=== PATIENT | female | born 1970 | race Two or more races ===

== ENCOUNTER 2019-09-30 18:24 | Emergency (ER) | payer OTHER ==
[~2019-09-30] VITALS: Ht 157.5 cm; Wt 115.7 kg
--- NOTE | 2019-09-30 18:35 | NUR ---
[id number] C/O COUGH AND CONGESTION, SOB X YESTERDAY. ALBUTEROL GIVEN BREAKFAST COOK. PT ALSO C/O URGENCY TO URINATE. PATIENT A/OX4, BREATHING EVEN AND UNLABORED, NO SOB NOTED, KEPT COMFORTABLE.
[2019-09-30] MEDS ORDERED: IV NS 0.9% 500 ML BAG IV ONE (19:00)
[2019-09-30] MEDS ORDERED: LORAZEPAM INJ 2 MG/ML VIAL ONE (19:08)
[2019-09-30 19:15] LABS: BASOPHILS # (AUTO) 0.1 /CMM (0.0-0.2); BASOPHILS % (AUTO) 0.5 % (0.0-2.0); EOSINOPHILS % (AUTO) 1.3 % (0.0-6.0); HEMATOCRIT 41 % (33-45); HEMOGLOBIN 13.1 g/dL (11.5-14.8); LYMPHOCYTES # (AUTO) 0.7 /CMM (0.8-4.8); LYMPHOCYTES % (AUTO) 5.5 % (20.0-44.0); MEAN CORPUSCULAR HGB CONC 32 g/dl (31.0-36.0); MEAN CORPUSCULAR VOLUME 78 fL (82-100); MONOCYTES # (AUTO) 0.6 /CMM (0.1-1.30); MONOCYTES % (AUTO) 4.6 % (2.0-12.0); NEUTROPHILS # (AUTO) 11.7 /CMM (1.8-8.9); NEUTROPHILS % (AUTO) 88.1 % (43.0-81.0); PLATELET COUNT (AUTO) 241 /CMM (150-450); RED BLOOD CELL COUNT(AUTO) 5.24 MIL/uL (4.0-5.2); WHITE BLOOD COUNT (AUTO) 13.3 K/uL (4.3-11.0)
[2019-09-30 19:23] LABS: APPEARANCE,URINE Clear (CLEAR); BILIRUBIN,URINE Negative (NEGATIVE); BLOOD, URINE Small Ery/uL (NEGATIVE); COLOR,URINE Yellow (YELLOW); KETONES,URINE Negative (NEGATIVE); LEUKOCYTE ESTERASE ,URINE Negative (NEGATIVE); NITRITE, URINE Negative (NEGATIVE); PROTEIN,URINE Negative (NEGATIVE); UGLUCOSE Negative (NEGATIVE); UROBILINOGEN,URINE 0.2 EU/dL (0.2)
[2019-09-30 19:30] LABS: CALCIUM, SERUM 9.6 mg/dL (8.5-10.1); CARBON DIOXIDE 29 mmol/L (21-32); CHLORIDE 101 mmol/L (98-107); CREATININE 0.7 mg/dL (0.6-1.3); GLUCOSE 140 mg/dL (74-106); POTASSIUM 4.1 mmol/L (3.5-5.1); SODIUM SERUM 138 mmol/L (136-145); UREA NITROGEN, BLOOD 9 mg/dL (7-18)
[2019-09-30] MEDS ORDERED: LORAZEPAM INJ 2 MG/ML VIAL IV ONE (19:30)
--- NOTE | 2019-09-30 20:07 | NUR ---
Cameron vidal in [facility] - 09/30/19 at 2259 by [email or web address] PT REC'D A BREATHING TX.
[2019-09-30 20:12] LABS: BACTERIA,URINE Few /HPF (None Seen); SQUAMOUS EPITHELIAL CELL,UR Few /HPF (None Seen); WBC,URINE 0-2 /HPF (0-3)
--- NOTE | 2019-09-30 20:27 | NUR ---
PT REC'D A BREATHING TX.
[2019-09-30] MEDS ORDERED: ALBUTEROL FS 2.5 MG/3 ML VIAL.NEB ONE (20:29)
[2019-09-30] MEDS ORDERED: IPRATROPIUM NEB FS 0.5 MG/2.5 ML AMPUL.NEB ONE (20:29)
[2019-09-30] MEDS ORDERED: ALBUTEROL FS 2.5 MG/3 ML VIAL.NEB NEB ONE (20:30)
[2019-09-30] MEDS ORDERED: methylPREDNISolone SOD SUCC 125 MG/2ML VIAL IV ONE (20:30)
[2019-09-30] MEDS ORDERED: IPRATROPIUM NEB FS 0.5 MG/2.5 ML AMPUL.NEB NEB ONE (20:30)
[2019-09-30] MEDS ORDERED: methylPREDNISolone SOD SUCC 125 MG/2ML VIAL ONE (20:39)
--- NOTE | 2019-09-30 20:50 | NUR ---
PT IS COUGHING AND IS C/O PAIN WITH COUGH. PT IS ON A BREATHING TX.
[2019-09-30] MEDS ORDERED: IOHEXOL-350 100 ML VIAL IV ONE (21:25)
--- NOTE | 2019-09-30 22:35 | NUR ---
18G IV STARTED IN LAC. RADIOLOGY CALLED RE: CTA - PT IS READY
--- NOTE | 2019-09-30 22:40 | NUR ---
JULIÁN ZHANG PAC IS AT THE BEDSIDE TRANSLATING FOR CLERICAL RECEPTIONISTGLEN.
--- NOTE | 2019-09-30 22:50 | NUR ---
PT LEFT FOR CT VIA [facility]
--- NOTE | 2019-09-30 23:01 | NUR ---
PT RETURNED FROM CT.
--- NOTE | 2019-10-01 00:06 | NUR ---
20G RT HAND AND 18G LAC IV's removed. Catheter intact and site benign. Pressure and 4x4 applied to site. No bleeding noted. Patient does not wish to proceed with medical care recommended by JULIÁN ZHANG PAC. Patient given information related to possible complications, up to and including , which could occur as a result of leaving the hospital at this time. Patient verbalizes understanding of risks involved due to leaving against medical advice. Patient has signed AMA form. Patient discharged to home in stable condition. Written and verbal after care instructions given. Patient verbalizes understanding of instruction. PT'S O2 SAT ON RA WAS 94% PRIOR TO LEAVING.
[2019-10-01 00:08] VITALS: BP 153/86
== END 2019-10-01 00:09 | disposition left against medical advice (07) ==
LOC: ER 18:26
DX: J20.9 Acute bronchitis, unspecified (principal); R09.02 Hypoxemia; F17.200 Nicotine dependence, unspecified, uncomplicated; I10 Essential (primary) hypertension
CPT/HCPCS: 36415; 71045; 71275; 80048; 81001; 83880; 84484; 85025; 85378; 93005; 94640; 96374; 96375; 99284; 99406; J2060; J2930; J7040; Q9967; 81000-TC

== ENCOUNTER 2020-06-08 08:46 | Emergency (ER) | payer MEDICAID, OTHER ==
[~2020-06-08] VITALS: Ht 167.6 cm; Wt 117.9 kg
[2020-06-08 08:53] VITALS: BP 166/68
[2020-06-08] MEDS ORDERED: IBUPROFEN 600 MG TABLET PO ONE (09:00)
[2020-06-08] MEDS ORDERED: IBUPROFEN 600 MG TABLET ONE (09:09)
== END 2020-06-08 10:34 | disposition home or self-care (01) ==
LOC: ER 08:52
DX: M79.672 Pain in left foot (principal); M79.675 Pain in left toe(s); I10 Essential (primary) hypertension; E11.9 Type 2 diabetes mellitus without complications
CPT/HCPCS: 73630-TC